=== PATIENT | female | born 1950 | race Caucasian/White ===

== ENCOUNTER 2020-07-17 06:17 | Inpatient (IN) ==
[2020-07-13 11:44] LABS: Basophils % 0.7 % (0.0-0.8); Eosinophils # 0.1 10*3/uL (0.0-0.87); Eosinophils % 4.6 % (0.00-10.9); Hematocrit 25.6 VOL% (35.7-47.0); Hemoglobin 7.7 GM/DL (12.0-16.0); Immature Granulocytes % 0.3 %; Immature Granulocytes Absolute 0.01 #; Lymphocytes # 0.6 10*3/uL (1.4-4.0); Lymphocytes % 18.6 % (21.3-54.2); Mean Corpuscular HGB Conc 30.1 GM/DL (32-36); Mean Corpuscular Volume 98.5 FL (87-102); Mean Platelet Volume 10.8 FL (9.6-12.0); Monocytes % 14.4 % (1.7-12.7); Neutrophils % 61.4 % (38.7-73.9); Platelet Count 268 T/CUMM (130-400); Red Cell Distribution Width 18.6 % (9.3-17.3); White Blood Count 3.1 T/CUMM (4-12)
[2020-07-13 11:53] LABS: Calcium 8.6 MG/DL (8.5-10.1); Osmolality,Calculated 282.1 MOS/KG (273-304)
[~2020-07-17 06:17] MED LIST: ALVIMOPAN 12 MG CAPSULE ONE; ERTAPENEM 1,000 MG VIAL ONE
[2020-07-17] MEDS ORDERED: LACTATED RINGERS 1,000 ML IV SCH (06:30)
[2020-07-17] MEDS ORDERED: ERTAPENEM 1,000 MG in SODIUM CHLORIDE 0.9% 100 ML IV ONE (07:00)
[2020-07-17] MEDS ORDERED: ALVIMOPAN 12 MG CAPSULE PO ONE (07:00)
[2020-07-17 07:48] LABS: Hemoglobin 7.6 GM/DL (12.0-16.0)
[2020-07-17] MEDS ORDERED: FAMOTIDINE 20 MG TABLET PO ONE (08:18)
[2020-07-17] MEDS ORDERED: FAMOTIDINE 20 MG TABLET ONE (08:26)
[2020-07-17] MEDS ORDERED: BUPIVACAINE MPF 0.5% /EPI 30 ML VIAL ONE (09:25)
[2020-07-17] MEDS ORDERED: DEXAMETHASONE 4 MG/1 ML VIAL ONE ×2 (09:26→14:10)
[2020-07-17] MEDS ORDERED: LIDOCAINE 1% 5 ML VIAL ONE (09:26)
[2020-07-17] MEDS ORDERED: TISSUE ADHESIVE 1 EACH APPLICATOR TOP ONE (10:25)
[2020-07-17] MEDS ORDERED: INDOCYANINE GREEN 25 MG VIAL IV ONE (10:25)
[2020-07-17] MEDS ORDERED: SCOPOLAMINE 1.5 MG PATCH TRANSDERM ONE (10:39)
[2020-07-17] MEDS ORDERED: SEVOFLURANE 1 UNIT/15 MINUTE INH ONE (14:07)
[2020-07-17] MEDS ORDERED: fentaNYL 100 MCG/2 ML VIAL ONE (14:08)
[2020-07-17] MEDS ORDERED: LIDOCAINE 2% 5 ML VIAL ONE (14:08)
[2020-07-17] MEDS ORDERED: propofoL 200 MG/20 ML VIAL IV ONE (14:08)
[2020-07-17] MEDS ORDERED: ePHEDrine 50 MG/ML VIAL ONE (14:10)
[2020-07-17] MEDS ORDERED: PHENYLEPHRINE 10 MG/1 ML VIAL IV ONE (14:10)
[2020-07-17] MEDS ORDERED: ROCURONIUM 100 MG/10 ML VIAL IV ONE (14:10)
[2020-07-17] MEDS ORDERED: ONDANSETRON 4 MG/2 ML VIAL ONE (14:10)
[2020-07-17] MEDS ORDERED: ACETAMINOPHEN 1,000 MG/100 ML VIAL IV ONE (14:10)
[2020-07-17] MEDS ORDERED: LACTATED RINGERS 2,000 ML IV ONE (14:10)
[2020-07-17] MEDS ORDERED: MIDAZOLAM 2 MG/2 ML VIAL ONE (14:12)
[2020-07-17] MEDS ORDERED: SUGAMMADEX 200 MG/2 ML VIAL IV ONE (14:15)
[2020-07-17] MEDS ORDERED: HYDROmorphone 2 MG/1 ML VIAL IV PRN (15:06)
[2020-07-17] MEDS ORDERED: ONDANSETRON 4 MG/2 ML VIAL IV PRN (15:06)
[2020-07-17] MEDS: LACTATED RINGERS 1,000 ML IV SCH (15:47)
[2020-07-17] MEDS: KETOROLAC 15 MG/1 ML VIAL IV SCH ×2 (15:48→20:44)
[2020-07-17 16:17] LABS: Basophils % 0.4 % (0.0-0.8); Eosinophils % 0.4 % (0.00-10.9); Hematocrit 27.7 VOL% (35.7-47.0); Hemoglobin 8.1 GM/DL (12.0-16.0); Immature Granulocytes % 0.4 %; Immature Granulocytes Absolute 0.01 #; Lymphocytes # 0.2 10*3/uL (1.4-4.0); Lymphocytes % 8.3 % (21.3-54.2); Mean Corpuscular HGB Conc 29.2 GM/DL (32-36); Mean Corpuscular Volume 104.5 FL (87-102); Monocytes % 5.8 % (1.7-12.7); Neutrophils % 84.7 % (38.7-73.9); Platelet Count 247 T/CUMM (130-400); Red Blood Count 2.65 MC/CUMM (3.8-5.5); Red Cell Distribution Width 18.5 % (9.3-17.3); White Blood Count 2.4 T/CUMM (4-12)
[2020-07-17 16:29] LABS: Calcium 8.6 MG/DL (8.5-10.1); Osmolality,Calculated 278.7 MOS/KG (273-304)
[2020-07-17 16:39] LABS: Hypochromasia 3+; Macrocytosis 2+
[2020-07-17 16:40] LABS: Ovalocytes 1+; Poikilocytosis 2+; Polychromasia 1+
[2020-07-17 16:41] LABS: Anisocytosis 1+; Platelet Estimate Normal
[2020-07-17] MEDS ORDERED: POTASSIUM CHLORIDE 20 MEQ TABLET PO PRN (20:36)
[2020-07-17] MEDS: ALVIMOPAN 12 MG CAPSULE PO SCH (20:44)
[2020-07-18] MEDS: POTASSIUM CHLORIDE RIDER 10 MEQ in PREMIX 1 EACH IV PRN ×4 (00:23→05:48)
[2020-07-18] MEDS: LACTATED RINGERS 1,000 ML IV SCH ×3 (01:12→20:59)
[2020-07-18] MEDS: KETOROLAC 15 MG/1 ML VIAL IV SCH ×4 (03:57→20:59)
[2020-07-18 06:13] LABS: Calcium 8.2 MG/DL (8.5-10.1)
[2020-07-18 06:14] LABS: Hemoglobin 7.1 GM/DL (12.0-16.0); Immature Granulocytes % 0.2 %; Immature Granulocytes Absolute 0.01 #; Lymphocytes # 0.3 10*3/uL (1.4-4.0); Mean Corpuscular HGB Conc 30.9 GM/DL (32-36); Mean Corpuscular Volume 97.5 FL (87-102); Mean Platelet Volume 11.1 FL (9.6-12.0); Monocytes % 7.1 % (1.7-12.7); Neutrophils % 87.7 % (38.7-73.9); Platelet Count 244 T/CUMM (130-400); Red Blood Count 2.36 MC/CUMM (3.8-5.5); Red Cell Distribution Width 18.5 % (9.3-17.3); White Blood Count 6.7 T/CUMM (4-12)
[2020-07-18] MEDS ORDERED: LACTATED RINGERS 1,000 ML IV ONE (07:14)
[2020-07-18] MEDS: ALVIMOPAN 12 MG CAPSULE PO SCH (09:15)
[2020-07-18] MEDS: ENOXAPARIN 40 MG/0.4 ML SYRINGE SUBCUT SCH (09:21)
[2020-07-18 10:58] LABS: Band Neutrophils 5 % (0-10); Lymphocytes 2 % (20-55); Polychromasia Slight; Schistocytes Few; Segmented Neutrophils 86 % (50-85); Total Cells Counted 100
[2020-07-18 10:59] LABS: Hypochromasia Slight; Microcytosis Slight; Platelet Estimate Normal
[2020-07-18 12:01] LABS: Hematocrit 22.2 VOL% (35.7-47.0); Hemoglobin 6.7 GM/DL (12.0-16.0)
[2020-07-18] MEDS ORDERED: SODIUM CHLORIDE 0.9% 1,000 ML IV PRN (12:27)
[2020-07-18 21:59] LABS: Hematocrit 28.2 VOL% (35.7-47.0)
[2020-07-19] MEDS: KETOROLAC 15 MG/1 ML VIAL IV SCH ×2 (03:04→10:34)
[2020-07-19] MEDS: LACTATED RINGERS 1,000 ML IV SCH (06:18)
[2020-07-19 07:02] LABS: Basophils % 0.2 % (0.0-0.8); Eosinophils % 0.7 % (0.00-10.9); Hematocrit 26.8 VOL% (35.7-47.0); Hemoglobin 8.7 GM/DL (12.0-16.0); Immature Granulocytes % 0.5 %; Immature Granulocytes Absolute 0.03 #; Lymphocytes # 0.4 10*3/uL (1.4-4.0); Mean Corpuscular HGB Conc 32.5 GM/DL (32-36); Mean Platelet Volume 11.2 FL (9.6-12.0); Monocytes % 4.6 % (1.7-12.7); Platelet Count 195 T/CUMM (130-400); Red Blood Count 2.82 MC/CUMM (3.8-5.5); Red Cell Distribution Width 17.9 % (9.3-17.3); White Blood Count 6.1 T/CUMM (4-12)
[2020-07-19 07:29] LABS: Calcium 8.6 MG/DL (8.5-10.1); Osmolality,Calculated 275.5 MOS/KG (273-304)
[2020-07-19] MEDS: ENOXAPARIN 40 MG/0.4 ML SYRINGE SUBCUT SCH (10:59)
[2020-07-19 11:55] VITALS: BP 105/58
[2020-07-19 13:09] LABS: Band Neutrophils 10 % (0-10); Lymphocytes 2 % (20-55); Segmented Neutrophils 83 % (50-85); Total Cells Counted 100
[2020-07-19 13:10] LABS: Anisocytosis 1+; Macrocytosis Slight; Ovalocytes Few
[2020-07-19 13:11] LABS: Platelet Estimate Adequate
== END 2020-07-19 13:33 | disposition home or self-care (01) | DRG 331 ==
LOC: N.OR 06:17 → N.SDSINP 06:19 → N.3E 15:02
PROVIDERS: ADMIT Surgery; ATTEND Surgery